=== PATIENT | female | born 1930 | race Caucasian/White ===

== ENCOUNTER 2017-02-24 10:11 | Observation (INO) | payer OTHER ==
[~2017-02-24] VITALS: Ht 157.5 cm; Wt 79.0 kg
[~2017-02-24 10:11] MED LIST: ADULT LOW DOSE81 M1 PO; ADVAIR HFA120 INHALA IH; ALLOPURINOL300 MG PO; ANORO ELLIPTA1 EACH IH; ANTIVERT25 MG PO; AZITHROMYCIN500 M1 PO; CILOSTAZOL50 MG PO; CIPROFLOXACIN500 M1 PO; COMBIVENT200 INHALA IH; DIAZEPAM5 MG PO; DOXYCYCLINE HY100 MG PO; DUONEB 2.5-0.5 M3 ML IH; FLONASE16 G1 BOTH NARES; HOME OXYGEN; HYDROCHLOROTHIA25 MG PO; HYDROCODON-ACE1 EAC7 PO; INCRUSE ELLI62.5 MCG IH; LANTUS (UNITS)1 UNIT SC; LANTUS 10100 UNITS/ SC; LASIX40 MG PO; LISINOPRIL5 MG PO; LO-DOSE ASPIRIN81 M2 PO; LORTAB 10 MG-3473 ML PO; METOPROLOL SUCC25 MG PO; METOPROLOL SUCC50 MG PO; NITRO-TIME2.5 MG PO; NITROBID2.5 MG PO; PLAVIX75 MG PO; PLETAL50 MG PO; PREDNISONE20 MG PO; PROTONIX40 MG PO; PROZAC10 MG PO; QUESTRAN PACKET4 GM PO; SPIRIVA RESPIMAT4 GM IH; SPIRIVA1 INHALATI IH; TOFRANIL25 MG PO; TOPROL XL25 MG PO; TYLENOL EXTRA500 MG PO; VALIUM5 MG PO; ZESTRIL,PRINIVI10 MG PO; ZESTRIL10 MG PO; ZESTRIL5 MG PO; ZOCOR20 MG PO
[2017-02-24 11:19] LABS: HEMATOCRIT 36.3 % (36.0-46.0); MCH 29.3 PG (29.0-34.0); MCHC 29.8 G/DL (30.0-36.0); MCV 98.4 FL (83-99); PLATELET COUNT 131 K/uL (156-360); RBC DIS.WIDTH-CV 13.1 % (11.8-14.6); RBC DIS.WIDTH-SD 46.8 % (39-53); RED BLOOD COUNT 3.69 M/uL (3.80-5.20); WHITE BLOOD COUNT 7.5 K/uL (4.1-10.2)
[2017-02-24 11:24] LABS: PROTHROMBIN TIME 11.5 SEC (10.2-12.9)
[2017-02-24 11:26] LABS: PTT 28.2 SEC (25-37)
[2017-02-24 11:41] LABS: TROP-I INTERPRETATION NEGATIVE; TROPONIN-I 0.02 ng/mL (0.0-0.30)
[2017-02-24 12:03] LABS: ALKALINE PHOSPHATASE 98 IU/L (3-129); ANION GAP ND MEQ/L (2-14); CHLORIDE 94 MEQ/L (99-109); DIRECT BILIRUBIN 0.1 mg/dL (0.0-0.3); GFR ESTIMATE (CALCULATED) > 59 mL/min/; GLUCOSE 107 mg/dL (70-99); SAMPLE HEMOLYSIS CHECK 0; SAMPLE ICTERIC CHECK 0; SAMPLE LIPEMIA CHECK 0; SODIUM 141 MEQ/L (136-147); TOTAL BILIRUBIN 0.5 MG/DL (0.0-1.0); UREA NITROGEN (BUN) 27 mg/dL (9-23)
[2017-02-24 12:04] LABS: CARBON DIOXIDE (BICARBONATE) > 40.0 MEQ/L (20-31)
[2017-02-24] MEDS ORDERED: IRON325 M1 PO (15:19)
[2017-02-24] MEDS ORDERED: SUPER MULTIVIT1 EACH PO (15:19)
[2017-02-24 16:32] VITALS: BP 191/82
[2017-02-24 17:26] LABS: TROP-I INTERPRETATION NEGATIVE; TROPONIN-I 0.02 ng/mL (0.0-0.30)
[2017-02-24 23:58] LABS: TROP-I INTERPRETATION NEGATIVE; TROPONIN-I 0.02 ng/mL (0.0-0.30)
[2017-02-25 00:14] VITALS: BP 151/71
[2017-02-25 03:05] VITALS: BP 123/56
[2017-02-25 05:26] LABS: HEMATOCRIT 32.4 % (36.0-46.0); MCH 29.7 PG (29.0-34.0); MCHC 30.2 G/DL (30.0-36.0); MCV 98.2 FL (83-99); PLATELET COUNT 120 K/uL (156-360); RBC DIS.WIDTH-SD 46.5 % (39-53); WHITE BLOOD COUNT 6.1 K/uL (4.1-10.2)
[2017-02-25 05:39] LABS: ANION GAP ND MEQ/L (2-14); CHLORIDE 97 MEQ/L (99-109); GFR ESTIMATE (CALCULATED) 56 mL/min/; GLUCOSE 100 mg/dL (70-99); POTASSIUM 4.7 MEQ/L (3.7-5.4); SAMPLE HEMOLYSIS CHECK 0; SAMPLE ICTERIC CHECK 0; SAMPLE LIPEMIA CHECK 0; SODIUM 141 MEQ/L (136-147); UREA NITROGEN (BUN) 26 mg/dL (9-23)
[2017-02-25 05:42] LABS: CARBON DIOXIDE (BICARBONATE) > 40.0 MEQ/L (20-31)
[2017-02-25 08:06] VITALS: BP 142/62
[2017-02-25 10:50] VITALS: BP 142/58
== END 2017-02-25 14:08 | disposition home or self-care (01) ==
LOC: EME 10:11 → 5WEST 14:36 → EDOF 14:36 → ENRESERV 15:08 → 5WEST 16:26
PROVIDERS: Emergency Medicine; Physician Assistant Medical
DX: R07.9 Chest pain, unspecified (principal); J44.9 Chronic obstructive pulmonary disease, unspecified; Z99.81 Dependence on supplemental oxygen; E11.9 Type 2 diabetes mellitus without complications; Z79.4 Long term (current) use of insulin; I10 Essential (primary) hypertension; Z86.11 Personal history of tuberculosis; Z86.73 Personal history of transient ischemic attack (TIA), and cerebral infarction without residual deficits; D64.9 Anemia, unspecified; F41.9 Anxiety disorder, unspecified; Z79.82 Long term (current) use of aspirin; R00.2 Palpitations; G89.29 Other chronic pain; M10.9 Gout, unspecified; Z90.710 Acquired absence of both cervix and uterus; Z82.49 Family history of ischemic heart disease and other diseases of the circulatory system; Z88.0 Allergy status to penicillin; Z88.2 Allergy status to sulfonamides; Z88.8 Allergy status to other drugs, medicaments and biological substances
CPT/HCPCS: 71020; 71275; 80048; 80076; 83880; 84484; 85027; 85379; 85610; 85730; 93005; 94640; 94799; 99281; 99285; G0378; J1650

== ENCOUNTER 2017-04-17 03:10 | Observation (INO) | payer OTHER ==
[~2017-04-17] VITALS: Ht 157.5 cm; Wt 82.8 kg
[~2017-04-17 03:10] MED LIST changes: +IRON325 M1 PO; +SUPER MULTIVIT1 EACH PO
[2017-04-17 03:46] LABS: HEMATOCRIT 32.4 % (36.0-46.0); HEMOGLOBIN 9.8 G/DL (11.9-15.5); MCH 30.6 PG (29.0-34.0); MCHC 30.2 G/DL (30.0-36.0); MCV 101.3 FL (83-99); PLATELET COUNT 143 K/uL (156-360); RBC DIS.WIDTH-CV 12.9 % (11.8-14.6); RBC DIS.WIDTH-SD 47.8 % (39-53); WHITE BLOOD COUNT 8.5 K/uL (4.1-10.2)
[2017-04-17 03:57] LABS: CHLORIDE 92 mEq/L (99-109); POTASSIUM 4.6 mEq/L (3.7-5.4); SODIUM 145 mEq/L (136-147)
[2017-04-17 03:59] LABS: GLUCOSE 106 mg/dL (70-99)
[2017-04-17 04:03] LABS: CREATININE 0.9 mg/dL (0.6-1.3); GFR ESTIMATE (CALCULATED) > 59 mL/min/
[2017-04-17 04:04] LABS: UREA NITROGEN (BUN) 24 mg/dL (9-23)
[2017-04-17 04:08] LABS: CARBON DIOXIDE (BICARBONATE) > 40.0 mEq/L (20-31)
[2017-04-17 04:11] LABS: TROP-I INTERPRETATION NEGATIVE; TROPONIN-I < 0.01 ng/mL (0.0-0.30)
[2017-04-17] MEDS ORDERED: FUROSEMIDE40 MG PO (05:02)
[2017-04-17 07:57] VITALS: BP 150/60
[2017-04-17 08:50] LABS: TROP-I INTERPRETATION NEGATIVE; TROPONIN-I 0.02 ng/mL (0.0-0.30)
== END 2017-04-17 15:30 | disposition home or self-care (01) ==
LOC: EME → EDBD 03:10 → EDOF 04:34 → ENRESERV 04:36 → 5WEST 07:23
PROVIDERS: Hospitalist; Physician Assistant
DX: R07.89 Other chest pain (principal); J96.11 Chronic respiratory failure with hypoxia; J44.9 Chronic obstructive pulmonary disease, unspecified; I12.9 Hypertensive chronic kidney disease with stage 1 through stage 4 chronic kidney disease, or unspecified chronic kidney disease; N18.3 Chronic kidney disease, stage 3 (moderate); E11.22 Type 2 diabetes mellitus with diabetic chronic kidney disease; D64.9 Anemia, unspecified; R09.89 Other specified symptoms and signs involving the circulatory and respiratory systems; F41.9 Anxiety disorder, unspecified; E78.5 Hyperlipidemia, unspecified; I27.20 Pulmonary hypertension, unspecified; I08.3 Combined rheumatic disorders of mitral, aortic and tricuspid valves; I73.9 Peripheral vascular disease, unspecified; Z86.73 Personal history of transient ischemic attack (TIA), and cerebral infarction without residual deficits; Z82.49 Family history of ischemic heart disease and other diseases of the circulatory system; G89.29 Other chronic pain; M54.9 Dorsalgia, unspecified; M25.50 Pain in unspecified joint; Z88.0 Allergy status to penicillin; Z88.2 Allergy status to sulfonamides; Z88.8 Allergy status to other drugs, medicaments and biological substances; Z79.4 Long term (current) use of insulin; Z79.82 Long term (current) use of aspirin; Z66 Do not resuscitate; Z90.710 Acquired absence of both cervix and uterus
CPT/HCPCS: 71046; 80048; 82948; 83880; 84484; 85027; 93005; G0378; J1644; J1815

== ENCOUNTER 2017-05-06 11:21 | Inpatient (IN) | payer OTHER ==
[~2017-05-06] VITALS: Ht 167.6 cm; Wt 87.5 kg
[~2017-05-06 11:21] MED LIST changes: +FUROSEMIDE40 MG PO
[2017-05-06 12:51] LABS: BASOPHIL (%) 0.2 % (0-1); EOSINOPHIL (%) 0.4 % (0-5); HEMATOCRIT 35.6 % (36.0-46.0); HEMOGLOBIN 10.2 G/DL (11.9-15.5); IMMATURE GRANULOCYTE (%) 1.2 % (0.0-0.7); LYMPHOCYTE (%) 11.7 % (15-42); LYMPHOCYTE COUNT 1.1 K/uL (1.0-2.8); MCH 30.2 PG (29.0-34.0); MCHC 28.7 G/DL (30.0-36.0); MONOCYTE (%) 7.1 % (3-12); MONOCYTE COUNT 0.7 K/uL (0-0.8); NEUTROPHIL (%) 79.4 % (45-76); NEUTROPHIL COUNT 7.4 K/uL (1.8-6.4); PLATELET COUNT 126 K/uL (156-360); RBC DIS.WIDTH-CV 13.2 % (11.8-14.6); RBC DIS.WIDTH-SD 50.6 % (39-53); RED BLOOD COUNT 3.38 M/uL (3.80-5.20); WHITE BLOOD COUNT 9.3 K/uL (4.1-10.2)
[2017-05-06 12:52] LABS: MCV 105.3 FL (83-99)
[2017-05-06 12:56] LABS: PTT 29.8 SEC (25-37)
[2017-05-06 13:11] LABS: CHLORIDE 93 mEq/L (99-109); POTASSIUM 4.5 mEq/L (3.7-5.4); SODIUM 144 mEq/L (136-147)
[2017-05-06 13:12] LABS: MAGNESIUM 1.5 mg/dL (1.3-2.7)
[2017-05-06 13:13] LABS: GLUCOSE 122 mg/dL (70-99)
[2017-05-06 13:14] LABS: TROP-I INTERPRETATION NEGATIVE; TROPONIN-I 0.04 ng/mL (0.0-0.30)
[2017-05-06 13:16] LABS: CREATININE 0.7 mg/dL (0.6-1.3); GFR ESTIMATE (CALCULATED) > 59 mL/min/
[2017-05-06 13:17] LABS: CARBON DIOXIDE (BICARBONATE) > 40.0 mEq/L (20-31); UREA NITROGEN (BUN) 17 mg/dL (9-23)
[2017-05-06 14:18] LABS: METHEMOGLOBIN 1.1 % (0-1.5)
[2017-05-06 14:23] LABS: DEVICE NC; O2 FLOW 3 L/MIN; SITE RR
[2017-05-06 14:24] LABS: COMMENTS - BLOOD GASES A+C+; PCO2 > 115 mm Hg (35-45); pH 7.23 (7.35-7.45)
[2017-05-06 14:25] LABS: PO2 97 mm Hg (80-100)
[2017-05-06 14:26] LABS: BASE EXCESS 48 mEq/L (-3 to +3)
[2017-05-06 16:13] LABS: METHEMOGLOBIN 1.2 % (0-1.5); PO2 109 mm Hg (80-100)
[2017-05-06 16:14] LABS: COMMENTS - BLOOD GASES NA C+; DEVICE MASK VENT; FI02 50 %; PCO2 > 126 mm Hg (35-45); SITE RR; pH 7.19 (7.35-7.45)
[2017-05-06 16:15] LABS: CONTINUOUS POS AIRWAY PRESSURE 5 cm H2O; MODE SPONT; PRES. SUPPORT 12 CM/H2O; TOTAL RESP RATE 15 resp/min
[2017-05-06 17:52] LABS: APPEARANCE CLOUDY ((CLEAR)); BILIRUBIN NEGATIVE; BLOOD SMALL; COLOR YELLOW ((YELLOW)); GLUCOSE (STRIP) 50; KETONES 5; LEUKOCYTES LARGE; NITRITE NEGATIVE; PROTEIN (STRIP) 100; UROBILINOGEN 0.2 MG/DL (0.2-1.0)
[2017-05-06 18:00] VITALS: BP 172/108; BP 200/100
[2017-05-06 18:02] LABS: BACTERIA NONE SEEN /HPF; EPITHELIAL CELLS 4+ /HPF; MUCUS TRACE /LPF; RED BLOOD CELLS 20-30 /HPF (0-5); UCUL ADDED? YES; WHITE BLOOD CELLS TNTC /HPF (0-5)
[2017-05-06 18:40] LABS: SPECIFIC GRAVITY 1.055 (1.000-1.030)
[2017-05-06 19:00] VITALS: BP 154/75
[2017-05-06 20:00] VITALS: BP 156/108
[2017-05-06 21:00] VITALS: BP 149/66
[2017-05-06 22:00] VITALS: BP 169/77
[2017-05-06 23:00] VITALS: BP 118/70
[2017-05-07] VITALS (18 sets, daily range): BP systolic 123–161; BP diastolic 59–92
[2017-05-07 06:57] LABS: CHLORIDE 92 MEQ/L (99-109); CREATININE 0.8 MG/DL (0.6-1.3); GFR ESTIMATE (CALCULATED) > 59 mL/min/; MAGNESIUM 1.2 mg/dl (1.3-2.7); SODIUM 138 MEQ/L (136-147); UREA NITROGEN (BUN) 17 mg/dL (9-23)
[2017-05-07 07:04] LABS: GLUCOSE 217 mg/dL (70-99); PHOSPHORUS < 1.0 mg/dL (2.5-4.9)
[2017-05-07 07:12] LABS: BASOPHIL (%) 0.1 % (0-1); EOSINOPHIL (%) 0 % (0-5); HEMATOCRIT 35.5 % (36.0-46.0); HEMOGLOBIN 10.6 G/DL (11.9-15.5); IMMATURE GRANULOCYTE (%) 0.9 % (0.0-0.7); LYMPHOCYTE (%) 6.8 % (15-42); LYMPHOCYTE COUNT 0.5 K/uL (1.0-2.8); MCH 29.9 PG (29.0-34.0); MCHC 29.9 G/DL (30.0-36.0); MONOCYTE (%) 1.3 % (3-12); MONOCYTE COUNT 0.1 K/uL (0-0.8); NEUTROPHIL (%) 90.9 % (45-76); NEUTROPHIL COUNT 6.4 K/uL (1.8-6.4); PLATELET COUNT 131 K/uL (156-360); RBC DIS.WIDTH-CV 12.8 % (11.8-14.6); RED BLOOD COUNT 3.54 M/uL (3.80-5.20)
[2017-05-07 07:15] LABS: MCV 100.3 FL (83-99)
[2017-05-07 13:39] LABS: BASE EXCESS 15.4 mEq/L (-3 to +3); BICARBONATE 38.3 mEq/L (22-26); CARBOXY HGB 1.5 % (0-5); METHEMOGLOBIN 1.6 % (0-1.5)
[2017-05-07 13:40] LABS: COMMENTS - BLOOD GASES A+C+; PCO2 39 mm Hg (35-45); PO2 56 mm Hg (80-100); SITE RR
[2017-05-07 13:41] LABS: DEVICE 980; FI02 40 %; MECHANICAL RATE 16 resp/min; MODE A/C; PEEP 5 CM/H20; TIDAL VOLUME 450 ML; TOTAL RESP RATE 16 resp/min
[2017-05-07 19:32] LABS: ALKALINE PHOSPHATASE 89 IU/L (3-129); ALT (GPT) 9 IU/L (3-49); AST (GOT) 13 IU/L (2-34); CHLORIDE 95 MEQ/L (99-109); CREATININE 0.9 MG/DL (0.6-1.3); GFR ESTIMATE (CALCULATED) > 59 mL/min/; GLUCOSE 319 mg/dL (70-99); SODIUM 138 MEQ/L (136-147); TOTAL BILIRUBIN 0.4 MG/DL (0.0-1.0); TOTAL PROTEIN 5.8 G/DL (6.4-8.3); UREA NITROGEN (BUN) 24 mg/dL (9-23)
[2017-05-07 19:40] LABS: POTASSIUM 3.1 MEQ/L (3.7-5.4)
[2017-05-07 23:39] LABS: MAGNESIUM 1.8 mg/dl (1.3-2.7); PHOSPHORUS 3.9 mg/dL (2.5-4.9)
[2017-05-08] VITALS (24 sets, daily range): BP systolic 115–166; BP diastolic 46–120
[2017-05-08 05:45] LABS: BASE EXCESS 14.1 mEq/L (-3 to +3); BICARBONATE 38.4 mEq/L (22-26); CARBOXY HGB 1.1 % (0-5); METHEMOGLOBIN 1.8 % (0-1.5); pH 7.53 (7.35-7.45)
[2017-05-08 05:46] LABS: COMMENTS - BLOOD GASES C+A+; DEVICE 980 VENT; FI02 50 %; MECHANICAL RATE 14 resp/min; MODE AC; PCO2 46 mm Hg (35-45); PO2 206 mm Hg (80-100); SITE RR; TIDAL VOLUME 400 ML; TOTAL RESP RATE 17 resp/min
[2017-05-08 06:03] LABS: BASOPHIL (%) 0 % (0-1); EOSINOPHIL (%) 0 % (0-5); HEMATOCRIT 30.5 % (36.0-46.0); HEMOGLOBIN 9.6 G/DL (11.9-15.5); IMMATURE GRANULOCYTE (%) 0.6 % (0.0-0.7); LYMPHOCYTE COUNT 0.3 K/uL (1.0-2.8); MCH 29.8 PG (29.0-34.0); MCHC 31.5 G/DL (30.0-36.0); MONOCYTE (%) 6.6 % (3-12); MONOCYTE COUNT 0.5 K/uL (0-0.8); NEUTROPHIL (%) 88.8 % (45-76); NEUTROPHIL COUNT 7.3 K/uL (1.8-6.4); PLATELET COUNT 135 K/uL (156-360); RBC DIS.WIDTH-CV 13.8 % (11.8-14.6); RBC DIS.WIDTH-SD 47.8 % (39-53); RED BLOOD COUNT 3.22 M/uL (3.80-5.20); WHITE BLOOD COUNT 8.2 K/uL (4.1-10.2)
[2017-05-08 06:10] LABS: CHLORIDE 101 MEQ/L (99-109); CREATININE 0.9 MG/DL (0.6-1.3); GFR ESTIMATE (CALCULATED) > 59 mL/min/; GLUCOSE 256 mg/dL (70-99); MAGNESIUM 1.7 mg/dl (1.3-2.7); SODIUM 140 MEQ/L (136-147); UREA NITROGEN (BUN) 28 mg/dL (9-23)
[2017-05-08 06:13] LABS: PHOSPHORUS 2.3 mg/dL (2.5-4.9); POTASSIUM 4.3 MEQ/L (3.7-5.4)
[2017-05-08 06:26] LABS: MCV 94.7 FL (83-99)
[2017-05-09] VITALS (14 sets, daily range): BP systolic 116–185; BP diastolic 44–109
[2017-05-09 05:46] LABS: CHLORIDE 104 MEQ/L (99-109); CREATININE 1.2 MG/DL (0.6-1.3); GFR ESTIMATE (CALCULATED) 45 mL/min/; GLUCOSE 195 mg/dL (70-99); SODIUM 142 MEQ/L (136-147); UREA NITROGEN (BUN) 37 mg/dL (9-23)
[2017-05-09 05:47] LABS: MAGNESIUM 2.3 mg/dl (1.3-2.7); PHOSPHORUS 5.2 mg/dL (2.5-4.9)
[2017-05-09 06:08] LABS: BASOPHIL (%) 0.1 % (0-1); EOSINOPHIL (%) 0 % (0-5); HEMATOCRIT 35.5 % (36.0-46.0); HEMOGLOBIN 10.4 G/DL (11.9-15.5); IMMATURE GRANULOCYTE (%) 1.1 % (0.0-0.7); LYMPHOCYTE (%) 2.8 % (15-42); LYMPHOCYTE COUNT 0.3 K/uL (1.0-2.8); MCH 30.2 PG (29.0-34.0); MCHC 29.3 G/DL (30.0-36.0); MONOCYTE (%) 3.2 % (3-12); MONOCYTE COUNT 0.3 K/uL (0-0.8); NEUTROPHIL (%) 92.8 % (45-76); PLATELET COUNT 147 K/uL (156-360); RBC DIS.WIDTH-CV 14.1 % (11.8-14.6); RBC DIS.WIDTH-SD 54.1 % (39-53); RED BLOOD COUNT 3.44 M/uL (3.80-5.20); WHITE BLOOD COUNT 10.7 K/uL (4.1-10.2)
[2017-05-09 06:10] LABS: MCV 103.2 FL (83-99)
[2017-05-09 09:40] LABS: HEMOGLOBIN A1c (GLYCOHEMOGLOB) 5.8 % (Below 5.7)
[2017-05-10] VITALS (16 sets, daily range): BP systolic 109–190; BP diastolic 54–90
[2017-05-10 05:34] LABS: MCH 29.6 PG (29.0-34.0); MCHC 28.2 G/DL (30.0-36.0); MCV 105.1 FL (83-99); RBC DIS.WIDTH-CV 13.6 % (11.8-14.6); RBC DIS.WIDTH-SD 52.9 % (39-53); RED BLOOD COUNT 3.71 M/uL (3.80-5.20); WHITE BLOOD COUNT 11.6 K/uL (4.1-10.2)
[2017-05-10 06:05] LABS: CHLORIDE 102 MEQ/L (99-109); CREATININE 1.6 MG/DL (0.6-1.3); GFR ESTIMATE (CALCULATED) 32 mL/min/; GLUCOSE 217 mg/dL (70-99); MAGNESIUM 2.2 mg/dl (1.3-2.7); PHOSPHORUS 5.9 mg/dL (2.5-4.9); POTASSIUM 5.1 MEQ/L (3.7-5.4); SODIUM 141 MEQ/L (136-147); UREA NITROGEN (BUN) 50 mg/dL (9-23)
[2017-05-10 06:20] LABS: PLAT.SUFFICIENCY ADEQUATE; PLATELET COUNT 172 K/uL (156-360)
[2017-05-10 09:23] LABS: CARBOXY HGB 2.4 % (0-5); METHEMOGLOBIN 1.8 % (0-1.5); PCO2 > 128 mm Hg (35-45); PO2 88 mm Hg (80-100)
[2017-05-10 09:24] LABS: COMMENTS - BLOOD GASES NA C+; DEVICE NC; O2 FLOW 3 L/MIN; SITE RR; TOTAL RESP RATE 14 resp/min
[2017-05-10 11:08] LABS: BASE EXCESS 0.4 mEq/L (-3 to +3); BICARBONATE 28.9 mEq/L (22-26); CARBOXY HGB 1.5 % (0-5); COMMENTS - BLOOD GASES A+C+; DEVICE VENT; FI02 70 %; METHEMOGLOBIN 1.7 % (0-1.5); MODE AC/VC; PCO2 66 mm Hg (35-45); PO2 125 mm Hg (80-100); SITE LR; pH 7.25 (7.35-7.45)
[2017-05-10 11:09] LABS: MECHANICAL RATE 20 resp/min; PEEP 5 CM/H20; TIDAL VOLUME 450 ML; TOTAL RESP RATE 20 resp/min
[2017-05-11] VITALS (22 sets, daily range): BP systolic 109–175; BP diastolic 51–96
[2017-05-11 07:11] LABS: BICARBONATE 31.2 mEq/L (22-26); CARBOXY HGB 1.2 % (0-5); METHEMOGLOBIN 1.6 % (0-1.5); PCO2 29 mm Hg (35-45); PO2 125 mm Hg (80-100); pH 7.64 (7.35-7.45)
[2017-05-11 07:13] LABS: COMMENTS - BLOOD GASES A+C+; DEVICE VENTILATOR; FI02 30 %; MECHANICAL RATE 22 resp/min; MODE AC-22; PEEP 5 CM/H20; SITE RR; TIDAL VOLUME 450 ML; TOTAL RESP RATE 22 resp/min
[2017-05-11 07:45] LABS: HEMATOCRIT 30.3 % (36.0-46.0); HEMOGLOBIN 9.5 G/DL (11.9-15.5); MCH 30.2 PG (29.0-34.0); MCHC 31.4 G/DL (30.0-36.0); RBC DIS.WIDTH-CV 13.5 % (11.8-14.6); RED BLOOD COUNT 3.15 M/uL (3.80-5.20); WHITE BLOOD COUNT 7.5 K/uL (4.1-10.2)
[2017-05-11 07:50] LABS: MCV 96.2 FL (83-99)
[2017-05-11 07:51] LABS: CHLORIDE 103 MEQ/L (99-109); CREATININE 1.4 MG/DL (0.6-1.3); GFR ESTIMATE (CALCULATED) 38 mL/min/; GLUCOSE 193 mg/dL (70-99); SODIUM 141 MEQ/L (136-147); UREA NITROGEN (BUN) 57 mg/dL (9-23)
[2017-05-11 07:52] LABS: POTASSIUM 3.2 MEQ/L (3.7-5.4)
[2017-05-11 08:01] LABS: BASOPHIL (%) 0 % (0-1); EOSINOPHIL (%) 0 % (0-5); IMMATURE GRANULOCYTE (%) 1.6 % (0.0-0.7); LYMPHOCYTE (%) 6.6 % (15-42); LYMPHOCYTE COUNT 0.5 K/uL (1.0-2.8); MONOCYTE COUNT 0.7 K/uL (0-0.8); NEUTROPHIL (%) 82.8 % (45-76); NEUTROPHIL COUNT 6.2 K/uL (1.8-6.4); PLAT.SUFFICIENCY DECREASED
[2017-05-11 08:15] LABS: PLATELET COUNT 115 K/uL (156-360)
[2017-05-11 17:39] LABS: FOLIC ACID (FOLATE) 19.5 NG/ML (5.0-22.0)
[2017-05-11 17:55] LABS: THYROTROPIN (TSH) 0.29 MIU/L (0.4-5.5)
[2017-05-11 20:24] LABS: CREATINE KINASE 27 IU/L (1-294); HIGH-SENS C-REACTIVE PROTEIN 1.66 MG/DL (0.02-0.20)
[2017-05-12] VITALS (23 sets, daily range): BP systolic 118–161; BP diastolic 54–81
[2017-05-12 07:00] LABS: BASOPHIL (%) 0.1 % (0-1); EOSINOPHIL (%) 0 % (0-5); HEMOGLOBIN 9.8 G/DL (11.9-15.5); IMMATURE GRANULOCYTE (%) 1.3 % (0.0-0.7); LYMPHOCYTE (%) 3.7 % (15-42); LYMPHOCYTE COUNT 0.3 K/uL (1.0-2.8); MCH 29.9 PG (29.0-34.0); MCHC 31.6 G/DL (30.0-36.0); MCV 94.5 FL (83-99); MONOCYTE (%) 4.6 % (3-12); MONOCYTE COUNT 0.4 K/uL (0-0.8); NEUTROPHIL (%) 90.3 % (45-76); NEUTROPHIL COUNT 6.8 K/uL (1.8-6.4); PLATELET COUNT 119 K/uL (156-360); RBC DIS.WIDTH-CV 14.1 % (11.8-14.6); RBC DIS.WIDTH-SD 48.8 % (39-53); RED BLOOD COUNT 3.28 M/uL (3.80-5.20); WHITE BLOOD COUNT 7.6 K/uL (4.1-10.2)
[2017-05-12 07:30] LABS: ALBUMIN 2.6 G/DL (3.2-4.8); ALKALINE PHOSPHATASE 73 IU/L (3-129); ALT (GPT) 50 IU/L (3-49); AST (GOT) 33 IU/L (2-34); CHLORIDE 105 MEQ/L (99-109); CREATININE 1.2 MG/DL (0.6-1.3); GFR ESTIMATE (CALCULATED) 45 mL/min/; GLUCOSE 256 mg/dL (70-99); MAGNESIUM 1.9 mg/dl (1.3-2.7); POTASSIUM 3.7 MEQ/L (3.7-5.4); SODIUM 143 MEQ/L (136-147); TOTAL BILIRUBIN 0.9 MG/DL (0.0-1.0); TOTAL PROTEIN 4.7 G/DL (6.4-8.3); UREA NITROGEN (BUN) 61 mg/dL (9-23)
[2017-05-12 18:09] LABS: PROCALCITONIN+ 0.52 ng/mL (<0.10)
[2017-05-13] VITALS (24 sets, daily range): BP systolic 0–170; BP diastolic 0–111
[2017-05-13 07:24] LABS: BASOPHIL (%) 0.1 % (0-1); EOSINOPHIL (%) 0 % (0-5); HEMOGLOBIN 10.2 G/DL (11.9-15.5); IMMATURE GRANULOCYTE (%) 1.9 % (0.0-0.7); LYMPHOCYTE (%) 3.3 % (15-42); LYMPHOCYTE COUNT 0.4 K/uL (1.0-2.8); MCH 29.9 PG (29.0-34.0); MCHC 31.9 G/DL (30.0-36.0); MCV 93.8 FL (83-99); MONOCYTE (%) 4.9 % (3-12); MONOCYTE COUNT 0.6 K/uL (0-0.8); NEUTROPHIL (%) 89.8 % (45-76); NEUTROPHIL COUNT 11.4 K/uL (1.8-6.4); PLATELET COUNT 137 K/uL (156-360); RBC DIS.WIDTH-CV 14.2 % (11.8-14.6); RBC DIS.WIDTH-SD 48.5 % (39-53); RED BLOOD COUNT 3.41 M/uL (3.80-5.20); WHITE BLOOD COUNT 12.7 K/uL (4.1-10.2)
[2017-05-13 07:45] LABS: ALBUMIN 2.8 G/DL (3.2-4.8); ALKALINE PHOSPHATASE 73 IU/L (3-129); ALT (GPT) 60 IU/L (3-49); AST (GOT) 29 IU/L (2-34); CHLORIDE 104 MEQ/L (99-109); GFR ESTIMATE (CALCULATED) 56 mL/min/; GLUCOSE 212 mg/dL (70-99); MAGNESIUM 1.9 mg/dl (1.3-2.7); PHOSPHORUS 2.6 mg/dL (2.5-4.9); POTASSIUM 4.1 MEQ/L (3.7-5.4); SODIUM 144 MEQ/L (136-147); TOTAL BILIRUBIN 0.8 MG/DL (0.0-1.0); TOTAL PROTEIN 4.8 G/DL (6.4-8.3); UREA NITROGEN (BUN) 57 mg/dL (9-23)
[2017-05-13 11:35] LABS: BASE EXCESS 10.9 mEq/L (-3 to +3); BICARBONATE 36.7 mEq/L (22-26); CARBOXY HGB 1.7 % (0-5); METHEMOGLOBIN 1.7 % (0-1.5)
[2017-05-13 11:36] LABS: COMMENTS - BLOOD GASES C+; DEVICE VENT; FI02 30 %; PCO2 54 mm Hg (35-45); PO2 95 mm Hg (80-100); SITE RR; pH 7.44 (7.35-7.45)
[2017-05-13 11:37] LABS: CONTINUOUS POS AIRWAY PRESSURE 5 cm H2O; MODE SPONT; PRES. SUPPORT 14 CM/H2O; TOTAL RESP RATE 24 resp/min
[2017-05-13 17:17] LABS: BASE EXCESS 10.9 mEq/L (-3 to +3); BICARBONATE 36.3 mEq/L (22-26); CARBOXY HGB 1.8 % (0-5); COMMENTS - BLOOD GASES C+; CONTINUOUS POS AIRWAY PRESSURE 5 cm H2O; DEVICE MASK VENT; FI02 30 %; METHEMOGLOBIN 1.9 % (0-1.5); MODE SPONT; PCO2 51 mm Hg (35-45); PO2 109 mm Hg (80-100); PRES. SUPPORT 15 CM/H2O; SITE RR; TOTAL RESP RATE 20 resp/min; pH 7.46 (7.35-7.45)
[2017-05-14] VITALS (24 sets, daily range): BP systolic 120–186; BP diastolic 49–103
[2017-05-14 06:39] LABS: BASOPHIL (%) 0.1 % (0-1); EOSINOPHIL (%) 1.1 % (0-5); EOSINOPHIL COUNT 0.1 K/uL (0-0.3); HEMATOCRIT 30.3 % (36.0-46.0); HEMOGLOBIN 9.3 G/DL (11.9-15.5); IMMATURE GRANULOCYTE (%) 1.6 % (0.0-0.7); LYMPHOCYTE (%) 9.7 % (15-42); LYMPHOCYTE COUNT 1.3 K/uL (1.0-2.8); MCH 29.2 PG (29.0-34.0); MCHC 30.7 G/DL (30.0-36.0); MCV 95.3 FL (83-99); MONOCYTE (%) 9.9 % (3-12); MONOCYTE COUNT 1.3 K/uL (0-0.8); NEUTROPHIL (%) 77.6 % (45-76); PLATELET COUNT 120 K/uL (156-360); RBC DIS.WIDTH-CV 14.1 % (11.8-14.6); RBC DIS.WIDTH-SD 49.2 % (39-53); RED BLOOD COUNT 3.18 M/uL (3.80-5.20); WHITE BLOOD COUNT 12.9 K/uL (4.1-10.2)
[2017-05-14 07:18] LABS: ALBUMIN 2.5 G/DL (3.2-4.8); ALKALINE PHOSPHATASE 66 IU/L (3-129); ALT (GPT) 40 IU/L (3-49); CHLORIDE 107 MEQ/L (99-109); CREATININE 0.9 MG/DL (0.6-1.3); GFR ESTIMATE (CALCULATED) > 59 mL/min/; GLUCOSE 157 mg/dL (70-99); MAGNESIUM 1.9 mg/dl (1.3-2.7); PHOSPHORUS 2.6 mg/dL (2.5-4.9); SODIUM 148 MEQ/L (136-147); TOTAL BILIRUBIN 0.7 MG/DL (0.0-1.0); TOTAL PROTEIN 4.4 G/DL (6.4-8.3); UREA NITROGEN (BUN) 49 mg/dL (9-23)
[2017-05-14 07:23] LABS: AST (GOT) 15 IU/L (2-34)
[2017-05-15] VITALS (24 sets, daily range): BP systolic 107–169; BP diastolic 48–88
[2017-05-15 06:00] LABS: BASOPHIL (%) 0.1 % (0-1); EOSINOPHIL COUNT 0.5 K/uL (0-0.3); HEMATOCRIT 32.4 % (36.0-46.0); HEMOGLOBIN 10.1 G/DL (11.9-15.5); IMMATURE GRANULOCYTE (%) 1.9 % (0.0-0.7); LYMPHOCYTE (%) 8.2 % (15-42); LYMPHOCYTE COUNT 0.9 K/uL (1.0-2.8); MCH 30.4 PG (29.0-34.0); MCHC 31.2 G/DL (30.0-36.0); MCV 97.6 FL (83-99); MONOCYTE (%) 11.1 % (3-12); MONOCYTE COUNT 1.3 K/uL (0-0.8); NEUTROPHIL (%) 74.7 % (45-76); NEUTROPHIL COUNT 8.6 K/uL (1.8-6.4); PLATELET COUNT 113 K/uL (156-360); RBC DIS.WIDTH-CV 14.1 % (11.8-14.6); RBC DIS.WIDTH-SD 50.1 % (39-53); RED BLOOD COUNT 3.32 M/uL (3.80-5.20); WHITE BLOOD COUNT 11.5 K/uL (4.1-10.2)
[2017-05-15 06:25] LABS: ALBUMIN 2.8 G/DL (3.2-4.8); ALKALINE PHOSPHATASE 72 IU/L (3-129); ALT (GPT) 38 IU/L (3-49); AST (GOT) 14 IU/L (2-34); CHLORIDE 105 MEQ/L (99-109); CREATININE 0.8 MG/DL (0.6-1.3); GFR ESTIMATE (CALCULATED) > 59 mL/min/; GLUCOSE 156 mg/dL (70-99); MAGNESIUM 1.8 mg/dl (1.3-2.7); PHOSPHORUS 2.7 mg/dL (2.5-4.9); POTASSIUM 4.1 MEQ/L (3.7-5.4); SODIUM 147 MEQ/L (136-147); TOTAL BILIRUBIN 0.7 MG/DL (0.0-1.0); TOTAL PROTEIN 4.8 G/DL (6.4-8.3); UREA NITROGEN (BUN) 37 mg/dL (9-23)
[2017-05-16] VITALS (25 sets, daily range): BP systolic 0–171; BP diastolic 0–102
[2017-05-16 06:56] LABS: BASOPHIL (%) 0.1 % (0-1); EOSINOPHIL (%) 3.5 % (0-5); EOSINOPHIL COUNT 0.4 K/uL (0-0.3); HEMATOCRIT 31.8 % (36.0-46.0); IMMATURE GRANULOCYTE (%) 1.6 % (0.0-0.7); LYMPHOCYTE (%) 10.2 % (15-42); LYMPHOCYTE COUNT 1.2 K/uL (1.0-2.8); MCH 30.4 PG (29.0-34.0); MCHC 31.4 G/DL (30.0-36.0); MCV 96.7 FL (83-99); MONOCYTE COUNT 1.3 K/uL (0-0.8); NEUTROPHIL (%) 73.6 % (45-76); NEUTROPHIL COUNT 8.6 K/uL (1.8-6.4); RBC DIS.WIDTH-SD 49.1 % (39-53); RED BLOOD COUNT 3.29 M/uL (3.80-5.20); WHITE BLOOD COUNT 11.6 K/uL (4.1-10.2)
[2017-05-16 07:17] LABS: ALBUMIN 2.7 G/DL (3.2-4.8); ALKALINE PHOSPHATASE 74 IU/L (3-129); ALT (GPT) 32 IU/L (3-49); AST (GOT) 15 IU/L (2-34); CHLORIDE 105 MEQ/L (99-109); CREATININE 0.8 MG/DL (0.6-1.3); GFR ESTIMATE (CALCULATED) > 59 mL/min/; GLUCOSE 95 mg/dL (70-99); MAGNESIUM 1.7 mg/dl (1.3-2.7); PHOSPHORUS 2.6 mg/dL (2.5-4.9); POTASSIUM 4.3 MEQ/L (3.7-5.4); SODIUM 146 MEQ/L (136-147); TOTAL BILIRUBIN 0.6 MG/DL (0.0-1.0); TOTAL PROTEIN 4.6 G/DL (6.4-8.3); UREA NITROGEN (BUN) 29 mg/dL (9-23)
[2017-05-16 09:29] LABS: PLATELET COUNT 104 K/uL (156-360)
[2017-05-17] VITALS (12 sets, daily range): BP systolic 110–175; BP diastolic 46–88
[2017-05-17 08:38] LABS: BASOPHIL (%) 0.2 % (0-1); EOSINOPHIL (%) 5.6 % (0-5); EOSINOPHIL COUNT 0.7 K/uL (0-0.3); HEMATOCRIT 33.6 % (36.0-46.0); HEMOGLOBIN 10.5 G/DL (11.9-15.5); IMMATURE GRANULOCYTE (%) 1.6 % (0.0-0.7); LYMPHOCYTE (%) 10.3 % (15-42); LYMPHOCYTE COUNT 1.4 K/uL (1.0-2.8); MCH 30.7 PG (29.0-34.0); MCHC 31.3 G/DL (30.0-36.0); MCV 98.2 FL (83-99); MONOCYTE (%) 7.1 % (3-12); MONOCYTE COUNT 0.9 K/uL (0-0.8); NEUTROPHIL (%) 75.2 % (45-76); PLATELET COUNT 120 K/uL (156-360); RBC DIS.WIDTH-SD 49.9 % (39-53); RED BLOOD COUNT 3.42 M/uL (3.80-5.20); WHITE BLOOD COUNT 13.2 K/uL (4.1-10.2)
[2017-05-17 09:05] LABS: ALBUMIN 2.7 G/DL (3.2-4.8); ALKALINE PHOSPHATASE 81 IU/L (3-129); ALT (GPT) 27 IU/L (3-49); AST (GOT) 14 IU/L (2-34); CHLORIDE 98 MEQ/L (99-109); CREATININE 0.7 MG/DL (0.6-1.3); GFR ESTIMATE (CALCULATED) > 59 mL/min/; GLUCOSE 137 mg/dL (70-99); MAGNESIUM 1.9 mg/dl (1.3-2.7); PHOSPHORUS 2.5 mg/dL (2.5-4.9); POTASSIUM 4.5 MEQ/L (3.7-5.4); SODIUM 143 MEQ/L (136-147); TOTAL BILIRUBIN 0.7 MG/DL (0.0-1.0); TOTAL PROTEIN 4.8 G/DL (6.4-8.3); UREA NITROGEN (BUN) 21 mg/dL (9-23)
[2017-05-17 19:41] LABS: ACETYLCHOLINE RECP BIND ABY+ <0.30 nmol/L (<=0.30)
[2017-05-18] VITALS (7 sets, daily range): BP systolic 138–175; BP diastolic 61–78
[2017-05-19] VITALS: BP 124/51
[2017-05-19 04:00] VITALS: BP 157/58
[2017-05-19 08:00] VITALS: BP 147/55
[2017-05-19] MEDS ORDERED: DUONEB 2.5-0.5 M3 ML AEROSOL (11:37)
[2017-05-19] MEDS ORDERED: Robitussin AC,Tussi- PO (11:37)
[2017-05-19] MEDS ORDERED: MORPHINE CON20 MG/M1 PO (11:48)
[2017-05-19] MEDS ORDERED: ATIVAN INTE2 MG/1 ML PO (11:48)
[2017-05-19 12:00] VITALS: BP 144/66
[2017-05-19 16:00] VITALS: BP 125/53
== END 2017-05-19 17:20 | disposition hospice, home (50) | DRG 207 ==
LOC: EME 11:21 → EDOF 16:07 → 4WEST 16:07 → 5SOUTH 16:07 → ENRESERV 16:09 → 4WEST 17:38 → ENRESERV 05-09 07:56 → 5SOUTH 05-09 15:33 → ENRESERV 05-10 09:37 → 4WEST 05-10 09:42 → CANRESERV 05-17 11:21 → ENRESERV 05-17 11:21 → 4WEST 05-17 17:15 → ENRESERV 05-17 17:19 → CANRESERV 05-17 17:19 → 4WEST 05-19 17:20
PROVIDERS: Emergency Medicine; Internal Medicine; Specialist; Surgery
PROC: 5A1955Z Respiratory Ventilation, Greater than 96 Consecutive Hours (ICD-10-PCS; principal; 2017-05-06)
PROC: 0BH17EZ Insertion of Endotracheal Airway into Trachea, Via Natural or Artificial Opening (ICD-10-PCS; 2017-05-06)
DX: J44.0 Chronic obstructive pulmonary disease with (acute) lower respiratory infection (principal); J96.21 Acute and chronic respiratory failure with hypoxia; J18.9 Pneumonia, unspecified organism; G93.41 Metabolic encephalopathy; J96.22 Acute and chronic respiratory failure with hypercapnia; J44.1 Chronic obstructive pulmonary disease with (acute) exacerbation; M41.9 Scoliosis, unspecified; J98.11 Atelectasis; E86.0 Dehydration; G47.33 Obstructive sleep apnea (adult) (pediatric); E11.22 Type 2 diabetes mellitus with diabetic chronic kidney disease; E11.51 Type 2 diabetes mellitus with diabetic peripheral angiopathy without gangrene; N17.9 Acute kidney failure, unspecified; I27.20 Pulmonary hypertension, unspecified; I13.0 Hypertensive heart and chronic kidney disease with heart failure and stage 1 through stage 4 chronic kidney disease, or unspecified chronic kidney disease; E78.5 Hyperlipidemia, unspecified; Z66 Do not resuscitate; I47.1 Supraventricular tachycardia; F41.9 Anxiety disorder, unspecified; N18.3 Chronic kidney disease, stage 3 (moderate); Z51.5 Encounter for palliative care; K21.9 Gastro-esophageal reflux disease without esophagitis; E87.2 Acidosis; Z90.710 Acquired absence of both cervix and uterus; Z99.81 Dependence on supplemental oxygen; Z90.2 Acquired absence of lung [part of]; Z79.899 Other long term (current) drug therapy; Z86.73 Personal history of transient ischemic attack (TIA), and cerebral infarction without residual deficits; Z79.4 Long term (current) use of insulin; Z79.82 Long term (current) use of aspirin; Z79.02 Long term (current) use of antithrombotics/antiplatelets; Z82.49 Family history of ischemic heart disease and other diseases of the circulatory system
CPT/HCPCS: 36600; 71045; 71275; 80048; 80053; 80202; 81003; 82550; 82607; 82746; 82803; 82948; 83036; 83090 90; 83735; 83880; 83921 90; 84100; 84145 90; 84238 90; 84439; 84443; 84484; 85025; 85027; 85610; 85730; 86141; 87070; 87086; 87205; 87502; 87641; 93005; 93306; 94002; 94003; 94640; 94640 76; 94644; 94660; 94760; 94799; 99202; 99281; 99285; A6214; J1644; J1815; J1940; J1956; J2060; J2250; J2543; J2704; J2920; J2930; J3010; J3370; J3475; J3480; J7030; J7040; J7050; J7120; S0028